=== PATIENT | female | born 1990 | race Caucasian/White ===

== ENCOUNTER 2022-03-13 08:24 | Outpatient (CLI) | payer BC, SELFPAY ==
[2022-03-13 15:42] LABS: Basophils Percent Auto 0.2 % (0.0-3.0); Eosinophils Percent Auto 1.2 % (0.0-7.0); Hematocrit 44.4 % (33.0-51.0); Hemoglobin* 14.1 gm/dL (12.0-16.0); Immature Granulocytes Abs Auto 0.03 K/uL (0.00-0.30); Mean Corpuscular HGB Conc 32 gm/dL (32-36); Mean Corpuscular Hemoglobin 28 pg (26-34); Mean Corpuscular Volume 88 fL (80-100); Neutrophils Percent Auto 77.3 % (42.0-72.0); Platelet Count* 236 K/uL (140-440); RDW Coefficient of Variation % 13.5 % (11.5-15.5); Red Blood Count 5.02 m/uL (4.00-5.20); White Blood Count* 11.31 K/uL (4.50-11.00)
[2022-03-13 15:44] LABS: Slide Review Reflex No
[2022-03-13 16:05] LABS: Chloride* 102 mmol/L (96-114)
[2022-03-13 16:06] LABS: Potassium* 5.1 mmol/L (3.6-5.1); Sodium* 137 mmol/L (135-149)
[2022-03-13 16:08] LABS: Creatinine* 0.8 mg/dL (0.5-1.5); Estimated Glomerular Filt Rate 102 ml/min
[2022-03-13 16:09] LABS: Blood Urea Nitrogen* 15 mg/dL (5-24); Calcium* 9.8 mg/dL (8.4-10.6); Carbon Dioxide* 27 mmol/L (20-32); Glucose* 100 mg/dL (60-115)
[2022-03-14 18:50] LABS: DHEAS 115 ug/dL (99-340); Follicle Stimulating Hormone 5.1 IU/L; Luteinizing Hormone, Serum 7.1 IU/L
[2022-03-18 17:32] LABS: Testosterone, Low Level 29 ng/dL (9-55)
== END 2022-03-13 08:25 | disposition home or self-care (01) ==
PROVIDERS: PCP Family Medicine; Visit Provider Family Medicine
DX: N91.2 Amenorrhea, unspecified (principal)
CPT/HCPCS: 80048; 82627; 83001; 83002; 84146; 84403; 84443; 85025

== ENCOUNTER 2022-03-23 09:07 | Outpatient (CLI) | payer BC, SELFPAY ==
[2022-03-27 21:43] LABS: Progesterone, HPLC-MS/MS <0.10 ng/mL
== END 2022-03-23 09:08 | disposition home or self-care (01) ==
PROVIDERS: PCP Family Medicine; Visit Provider Registered Nurse
DX: N91.2 Amenorrhea, unspecified (principal)
CPT/HCPCS: 83498; 84144

== ENCOUNTER 2022-07-12 16:15 | Outpatient (CLI) | payer BC, SELFPAY ==
[2022-07-14 19:03] LABS: Estradiol Premenol Female 113 pg/mL
== END 2022-07-12 16:16 | disposition home or self-care (01) ==
LOC: NFLDREF 16:15
PROVIDERS: PCP Family Medicine; Visit Provider Registered Nurse
DX: N91.2 Amenorrhea, unspecified
CPT/HCPCS: 80061; 82670

== ENCOUNTER 2022-07-16 08:21 | Outpatient (CLI) | payer BC, SELFPAY ==
--- NOTE | 2022-07-16 08:15 | CRLHL7_ITS ---
For Patients: As a result of the Century Cures Act, medical imaging exams and procedure reports are released immediately into your electronic medical record. You may view this report before your referring provider. If you have questions, please contact your health care provider. Indication: Fertility Technique: Routine hysterosalpingogram performed. Fluoroscopic time 27 seconds. IMPRESSION: Normal patency of the fallopian tubes. No endometrial canal filling defect. Incidental air bubbles noted Dictated by Taz Riley MD @ 07/16/2022 9:35:21 AM (Electronically Signed)
--- NOTE | 2022-07-16 09:07 | P.PCN_ITS ---
Procedure Note Time Seen by Provider: 08:45 Date Seen: 07/16/22 Provider Contact Time: 08:45 Date of procedure: 07/16/22 Will [facility] bill your pro fee for this procedure?: Yes Procedure: PREPROCEDURE DIAGNOSIS: Infertility POSTPROCEDURE DIAGNOSIS: 1. Infertility 2. Patent fallopian tubes bilaterally. NAME OF PROCEDURE: Hysterosalpingogram. ANESTHESIA: None. COMPLICATIONS: None. PROCEDURE: After obtaining verbal consent, the patient was placed in the dorsal lithotomy position on the x-ray table. An open-sided bivalve speculum was introduced into the vagina and the cervix easily visualized. The cervix and vagina were then prepped with Betadine. The anterior lip of the cervix was grasped with single tooth tenaculum for traction. Os binder/cervical dilator used: No. A balloon tipped double-lumen catheter was then gently inserted through the cervical opening into the uterine cavity to the level of the fundus. The balloon was insufflated with 3 mL of air. The tenaculum and speculum were removed. The patient was repositioned in the supine position, covered, and the radiologist was called to the room. A hysterosalpingogram was then performed. A total of 3 cc of Optiray 300 water soluble contrast dye was injected through the double-lumen catheter under moderate pressure. There was immediate fill of the uterine cavity to the cornua [and immediate fill of both fallopian tubes and free spillage of dye on both sides] The balloon was deflated. The catheter was removed. The patient tolerated the procedure well, though she did have moderate cramping discomfort during and just after the procedure. She was discharged to home in stable condition and make an appointment with her physician to review all of her lab results and procedure results. Surgeon: Breanne Huizar MD
== END 2022-07-16 08:22 | disposition home or self-care (01) ==
PROVIDERS: PCP Family Medicine; Visit Provider Registered Nurse
DX: Z31.41 Encounter for fertility testing (principal)
CPT/HCPCS: 58340; 74740; 80061; A4649; Q9967

== ENCOUNTER 2022-08-27 07:50 | Outpatient (CLI) | payer BC, SELFPAY | END 2022-08-27 07:51 | disposition home or self-care (01) | LOC: NFLDREF 09-01 05:58 | PROVIDERS: PCP Family Medicine; Referring Provider Family Medicine; Visit Provider Registered Nurse | DX: E28.2 Polycystic ovarian syndrome (principal) | CPT/HCPCS: 84144 ==

== ENCOUNTER 2022-12-31 17:08 | Outpatient (CLI) | payer BC, SELFPAY | END 2022-12-31 17:09 | disposition home or self-care (01) | LOC: NFLDREF 17:09 | PROVIDERS: PCP Family Medicine; Visit Provider Registered Nurse | DX: Z31.41 Encounter for fertility testing (principal) | CPT/HCPCS: 84144 ==

== ENCOUNTER 2023-01-26 09:36 | Outpatient (CLI) | payer SELFPAY ==
[2023-01-28 21:42] LABS: Progesterone, HPLC-MS/MS 0.93 ng/mL
== END 2023-01-26 09:37 | disposition home or self-care (01) ==
LOC: LAB 09:37
PROVIDERS: PCP Family Medicine; Visit Provider Registered Nurse
DX: N97.0 Female infertility associated with anovulation (principal); E28.2 Polycystic ovarian syndrome
CPT/HCPCS: 36415; 84144

== ENCOUNTER 2023-06-06 08:17 | Outpatient (CLI) | payer BC, SELFPAY | END 2023-06-06 08:18 | disposition home or self-care (01) | PROVIDERS: PCP Family Medicine; Visit Provider Family Medicine | DX: Z01.818 Encounter for other preprocedural examination (principal); N97.0 Female infertility associated with anovulation | CPT/HCPCS: 80048; 85025 ==